=== PATIENT | female | born 1990 | race Native Hawaiian/Other Pacific Islander ===

== ENCOUNTER 2016-12-30 23:48 | Emergency (ER) | payer SELFPAY ==
[2016-12-31 00:29] LABS: SPECIFIC GRAVITY 1.025 (1.001-1.030); URINE BILIRUBIN NEGATIVE (NEGATIVE); URINE BLOOD 1+ (NEGATIVE); URINE GLUCOSE (UA) NEGATIVE (NEGATIVE); URINE LEUKOCYTE ESTERASE NEGATIVE (NEGATIVE); URINE NITRITE NEGATIVE (NEGATIVE); URINE PROTEIN NEGATIVE (NEGATIVE); URINE UROBILINOGEN NORMAL (0-1 mg/dl)
[2016-12-31 00:30] LABS: URINE APPEARANCE CLEAR; URINE COLOR LIGHT YELLOW
[2016-12-31 00:31] LABS: HCG,QUALITATIVE URINE NEGATIVE
[2016-12-31 00:44] LABS: URINE BACTERIA 0; URINE EPITHELIAL CELLS 0-2 /hpf; URINE WBC 0-2 /hpf
[2016-12-31] MEDS ORDERED: KETOROLAC TROMETHAMINE 60 MG/2 ML VIAL ONE (01:47)
--- NOTE | 2016-12-31 07:50 | CT ---
Examination: Noncontrast CT scans of the Abdomen and Pelvis Clinical indication: Right lower quadrant pain. Comparison:None Technique: Multidetector CT scanner was utilized. No oral or intravenous contrast was administered. Axial images were acquired from just above the domes of the diaphragm to the iliac crest. A CT scan of the pelvis was carried out from the iliac crest to the initial tuberosities. Sagittal, axial and coronal stacked 5 mm images were reviewed. Findings: Abdomen CT (noncontrast): The lung bases are clear and are without mass or pleural effusion. The liver is unremarkable. The gallbladder is within normal limits. There is no evidence of biliary obstruction. The spleen size and attenuation are within normal limits. The pancreas is normal in size and contours. No inflammatory stranding is identified. The pancreatic duct is unremarkable. The adrenals are unremarkable. The kidneys are without mass or hydronephrosis. No nephrolithiasis is identified. The abdominal aorta unremarkable. There is no retroperitoneal adenopathy identified. The stomach is unremarkable. The visualized segments of small and large bowel are within normal limits. The osseous structures exhibit no displaced fracture. No lytic or blastic lesions are identified. Pelvic CT findings (noncontrast): The distal ureters and bladder are unremarkable. The uterus is unremarkable. There are no adnexal masses. No adenopathy is identified. The distal abdominal aorta and iliac vessels are within normal limits. The visualized segments of small and large bowel are unremarkable. The appendix is unremarkable. No displaced fractures are identified. There are no gross osteolytic or blastic lesions. There is soft tissue stranding adjacent to the right rectus abdominous in the infraumbilical distribution. This may reflect a small hematoma or injection site. IMPRESSION: 1. No evidence of acute inflammatory or obstructive process involving the abdomen or pelvis. 2. Subcutaneous soft tissue stranding right anterior pelvis. This may reflect a small hematoma or injection site. Inflammatory etiology can give a similar appearance. 3. Normal appendix. Findings were communicated by [facility] to the emergency department at: 2:43 AM 12/31/2016
[2017-01-01 15:42] LABS: CHLAMYDIA BD Positive (Negative); N.GONORRHOEAE BD Negative (Negative); SOURCE Urine (())
== END 2016-12-31 03:16 | disposition home or self-care (01) ==
LOC: ED 23:48
DX: S30.1XXA Contusion of abdominal wall, initial encounter (principal); X58.XXXA Exposure to other specified factors, initial encounter
CPT/HCPCS: 87491; 87591; 81025; 81001; 74176; 99283 ×2; J1885